=== PATIENT | female | born 1995 | race Caucasian/White ===

== ENCOUNTER 2023-10-07 07:26 | Emergency (ER) | payer OTHER ==
[2023-10-07 07:39] VITALS: RESP 17; BMI 27.6
[2023-10-07 08:23] LABS: THROAT:GRP A STREP NOT DETECTED (NOTDETECTED)
[2023-10-07 09:48] VITALS: BP 112/79; PULSE 98; TEMP 99.1
== END 2023-10-07 10:12 | disposition home or self-care (01) ==
LOC: JER 07:26
DX: O99.891 Other specified diseases and conditions complicating pregnancy (principal); R51.9 Headache, unspecified; M79.10 Myalgia, unspecified site; R50.9 Fever, unspecified; R53.81 Other malaise; O99.512 Diseases of the respiratory system complicating pregnancy, second trimester; J02.9 Acute pharyngitis, unspecified; Z3A.27 27 weeks gestation of pregnancy; Z20.822 Contact with and (suspected) exposure to COVID-19
CPT/HCPCS: 0241U-QW; 87651; 99283-25

== ENCOUNTER 2023-12-09 19:00 | Inpatient (IN) | payer OTHER ==
[2023-12-09] MEDS: ELECTROLYTE-148 SOLN 1,000 ML IV SCH (20:30)
[2023-12-09 20:40] LABS: BASO % 0.6 % (0-2.0); EOS % 0.9 % (0-4.5); HEMATOCRIT 34.6 % (32.4-45.2); HEMOGLOBIN 11.9 GM/dL (10.7-15.3); LYMPH % 21.8 % (8-40); MCHC 34.5 g/dl (32.0-36.0); MEAN CELL VOLUME 89.7 fl (80-96); MEAN PLT VOLUME 8.9 fl (7.5-11.1); MONO % 8.9 % (3.8-10.2); NEUT % 67.8 % (42.8-82.8); PLATELET COUNT 309 10^3/uL (134-434); RBC 3.86 M/mm3 (3.60-5.2); RDW 13.1 % (11.6-15.6); WHITE BLOOD COUNT 7.7 K/mm3 (4.0-10.0)
[2023-12-09 20:50] LABS: INR 0.94 (0.83-1.09); PROTHROMBIN TIME (PATIENT) 10.6 SEC (9.7-13.0)
[2023-12-09 20:52] LABS: ACTIVATED PTT 29.7 SECONDS (25.2-36.5)
[2023-12-09 21:02] LABS: POTASSIUM 3.9 mmol/L (3.5-5.1)
[2023-12-09 21:04] LABS: BLOOD UREA NITROGEN 10.3 mg/dL (7-18)
[2023-12-09 21:07] LABS: CREATININE 0.6 mg/dL (0.55-1.3)
[2023-12-09 21:28] LABS: SYPHILIS W/ RPR CONF NON-REACTIVE (NONREACTIVE)
[2023-12-09 21:33] VITALS: BMI 27.6
[2023-12-09 21:41] LABS: RETICULOCYTES 2.09 % (0.5-1.5)
[2023-12-09 22:08] LABS: URIC ACID 5.3 mg/dL (2.6-7.2)
[2023-12-09] MEDS: DINOPROSTONE 10 MG VAGINAL SUPPOSITORY VG ONE (22:50)
[2023-12-10] MEDS: MAG HYDROX/AL HYDROX/SIMETH 30 ML UNIT-DOSE CUP PO ONE (02:00)
[2023-12-10] MEDS: ELECTROLYTE-148 SOLN 1,000 ML IV SCH (04:00)
[2023-12-10] MEDS ORDERED: OXYTOCIN 30 UNITS in 0.9% NS 30 UNIT/500 ML INFUS.BAG IVPB ONE (08:45)
[2023-12-10] MEDS: OXYTOCIN 30 UNITS in 0.9% NS 30 UNIT/500 ML INFUS.BAG IVPB SCH (09:09)
[2023-12-10] MEDS: URSODIOL 300 MG CAPSULE PO SCH (09:38)
[2023-12-10 11:37] LABS: HEPATITIS B SURFACE AG MATERN NON-REACTIVE (NONREACTIVE)
[2023-12-10] MEDS ORDERED: FENTANYL/BUPIVACAINE/NS/PF - PCEA - 50 ML DISP.SYRIN EP ONE (23:04)
[2023-12-10] MEDS ORDERED: BUPIVACAINE HCL/PF 0.25% (2.5MG/ML) 10 ML VIAL ONE (23:12)
[2023-12-10] MEDS ORDERED: FENTANYL CITRATE/PF 50 MCG/ML VIAL ONE (23:12)
[2023-12-10] MEDS: FENTANYL/BUPIVACAINE/NS/PF - PCEA - 50 ML DISP.SYRIN EP SCH (23:30)
[2023-12-10] MEDS ORDERED: NALOXONE HCL 0.4 MG/ML VIAL IVPUSH PRN (23:31)
[2023-12-11] MEDS ORDERED: FENTANYL/BUPIVACAINE/NS/PF - PCEA - 50 ML DISP.SYRIN EP ONE ×2 (04:15→08:41)
[2023-12-11] MEDS: FENTANYL/BUPIVACAINE/NS/PF - PCEA - 50 ML DISP.SYRIN EP SCH (04:19)
[2023-12-11] MEDS ORDERED: IBUPROFEN 600 MG TABLET (FP) PO PRN (09:11)
[2023-12-11] MEDS ORDERED: METHYLERGONOVINE MALEATE 0.2 MG/1 ML AMP IM PRN (09:11)
[2023-12-11] MEDS ORDERED: BISACODYL 10 MG SUPP.RECT RC PRN (09:11)
[2023-12-11] MEDS ORDERED: oxyCODONE HCL 5 MG TABLET PO PRN (09:11)
[2023-12-11 09:36] LABS: RETICULOCYTES 2.13 % (0.5-1.5)
[2023-12-11] MEDS ORDERED: LIDOCAINE HCL 1% PRESERVATIVE FREE - 30ML VIAL ONE (09:41)
[2023-12-11] MEDS ORDERED: OXYTOCIN 20 UNITS in 0.9% NS 20 UNIT/1,000 ML INFUS.BAG IV ONE (09:41)
[2023-12-11 10:03] LABS: URIC ACID 6.4 mg/dL (2.6-7.2)
[2023-12-11] MEDS ORDERED: ceFAZolin SODIUM 1 GM VIAL ONE (10:40)
[2023-12-11] MEDS: OXYTOCIN 20 UNITS in 0.9% NS 20 UNIT/1,000 ML INFUS.BAG IV SCH (10:45)
[2023-12-11] MEDS: CEFAZOLIN SODIUM 2 GM in DEXTROSE 5%-WATER 100 ML IVPB ONE (10:45)
[2023-12-11 10:51] LABS: CORD BASE EXCESS -5.8 mmol/L (0-2); CORD HCO3 19.1 mmHg (20-29); CORD PCO2 36.3 mmHg (30-78); CORD pH 7.34 (7.14-7.44)
[2023-12-11 10:54] LABS: CORD BASE EXCESS -8.5 mmol/L (0-2); CORD HCO3 16.8 mmHg (20-29); CORD PCO2 34.8 mmHg (30-78); CORD pH 7.302 (7.14-7.44)
[2023-12-11] MEDS ORDERED: PRENATAL VITAMINS W/ FOLIC ACID TABLET (FP) PO ONE (12:12)
[2023-12-11] MEDS ORDERED: FERROUS SO4 325 MG TABLET (FP) ONE (12:12)
[2023-12-11] MEDS: FERROUS SO4 325 MG TABLET (FP) PO SCH (12:14)
[2023-12-11] MEDS: PRENATAL VITAMINS W/ FOLIC ACID TABLET (FP) PO SCH (12:14)
[2023-12-11] MEDS: ACETAMINOPHEN 325 MG TABLET (FP) PO PRN (21:43)
[2023-12-11] MEDS: WITCH HAZEL 50% (TUCKS) 40 PAD/JAR PAD TP PRN (21:44)
[2023-12-11] MEDS: BENZOCAINE 20% 57 GM BOTTLE TP PRN (21:44)
[2023-12-11] MEDS: BENZOCAINE 28 GM HEMORRHOIDAL OINTMENT TP PRN (21:44)
[2023-12-11] MEDS: BUTORPHANOL TARTRATE 2 MG/ML VIAL IVPB ONE (22:15)
[2023-12-11] MEDS: PROMETHAZINE HCL 25 MG/1 ML VIAL IVPB ONE (22:15)
[2023-12-12 07:56] LABS: BASO % 0.2 % (0-2.0); EOS % 0.3 % (0-4.5); HEMATOCRIT 29.8 % (32.4-45.2); HEMOGLOBIN 10.1 GM/dL (10.7-15.3); LYMPH % 12.5 % (8-40); MCH 31.2 pg (25.7-33.7); MEAN CELL VOLUME 91.9 fl (80-96); MEAN PLT VOLUME 8.8 fl (7.5-11.1); MONO % 8.1 % (3.8-10.2); NEUT % 78.9 % (42.8-82.8); PLATELET COUNT 258 10^3/uL (134-434); RBC 3.24 M/mm3 (3.60-5.2); RDW 13.3 % (11.6-15.6); WHITE BLOOD COUNT 17.3 K/mm3 (4.0-10.0)
[2023-12-12] MEDS ORDERED: SENNOSIDES/DOCUSATE COMBO (SENNA PLUS) TABLET (UD) PO PRN (22:00)
[2023-12-13 10:12] VITALS: BP 114/74; PULSE 95; RESP 17; TEMP 97.3
== END 2023-12-13 11:45 | disposition home or self-care (01) | DRG 807 ==
LOC: JLDR 19:00 → J3W 12-11 12:58
PROVIDERS: ADMIT Obstetrics & Gynecology; ATTEND Obstetrics & Gynecology
PROC: 10E0XZZ Delivery of Products of Conception, External Approach (ICD-10-PCS; principal; 2023-12-11)
PROC: 0W8NXZZ Division of Female Perineum, External Approach (ICD-10-PCS; 2023-12-11)
DX: O26.643 Intrahepatic cholestasis of pregnancy, third trimester (principal); Z37.0 Single live birth; E78.79 Other disorders of bile acid and cholesterol metabolism; K76.89 Other specified diseases of liver; Z3A.36 36 weeks gestation of pregnancy; O75.89 Other specified complications of labor and delivery; L28.2 Other prurigo; R79.89 Other specified abnormal findings of blood chemistry
CPT/HCPCS: 36415; 36600; 59409; 80048; 82803; 82977; 83010; 84450; 84460; 84550; 85025; 85032; 85045; 85610; 85730; 86780; 86850; 86900; 86901; 87340

== ENCOUNTER 2025-01-07 21:45 | Emergency (ER) | payer OTHER ==
[2025-01-07 21:49] VITALS: BP 133/90; PULSE 97; RESP 18; TEMP 98.6; BMI 26.5
[2025-01-08 00:46] LABS: HCV DIAGNOSTIC IN-HOUSE W/RFLX NON-REACTIVE (NONREACTIVE)
[2025-01-08 00:52] LABS: HIV INTERPRETATION NEGATIVE (NEGATIVE)
== END 2025-01-08 00:50 | disposition left against medical advice (07) ==
LOC: JER 21:45
DX: O20.9 Hemorrhage in early pregnancy, unspecified (principal); Z3A.00 Weeks of gestation of pregnancy not specified
CPT/HCPCS: 36415; 76817-TC; 84702; 86803; 87389; 93005; 93010; 99285-25